=== PATIENT | female | born 1965 | race Caucasian/White ===

== ENCOUNTER 2021-01-12 17:04 | Emergency (ER) | payer MEDICAID ==
[~2021-01-12] VITALS: Ht 157.5 cm; Wt 61.2 kg
[2021-01-12 17:10] VITALS: BP 195/116
--- NOTE | 2021-01-12 17:13 | NUR ---
Patient ambulated with assistance to bed 4.
--- NOTE | 2021-01-12 17:27 | NUR ---
55 YO F REFERRED FROM [facility] FOR ELEVATED BP. PT DENIES HEADACHE/BLURRED VISION/DIZZINESS. IN ED, BP 195/116. AOX4. NOT IN DISTRESS. HEART RATE NORMAL REGULAR RHYTHM. CLEAR BREATH SOUNDS. PT POSITIONED COMFORTABLY IN BED. ERMD MADE AWARE OF PT STATUS. PMH: HTN MEDS: LISINOPRIL NKA
[2021-01-12] MEDS ORDERED: LISI-487 PO (17:31)
[2021-01-12 17:39] VITALS: BP 195/116
--- NOTE | 2021-01-12 17:40 | NUR ---
Patient discharged with v/s stable. Written and verbal after care instructions given and explained. Patient alert, oriented and verbalized understanding of instructions. Ambulatory with steady gait. All questions addressed prior to discharge. ID band removed. Patient advised to follow up with PMD. Rx of LISINOPRIL given. Patient educated on indication of medication including possible reaction and side effects. Opportunity to ask questions provided and answered.
== END 2021-01-12 17:40 | disposition home or self-care (01) ==
LOC: MED 17:04
DX: I10 Essential (primary) hypertension (principal); Z76.0 Encounter for issue of repeat prescription
CPT/HCPCS: 99281